=== PATIENT | male | born 1985 | race Caucasian/White ===

== ENCOUNTER 2018-05-11 09:45 | Emergency (ER) | payer OTHER ==
--- NOTE | 2018-05-12 10:37 | ER ---
DATE SEEN: 05/11/2018 TIME SEEN: The patient was seen at 1015 hours. 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 He has been coughing intermittently with mild shortness of breath that is extensive. MEDICAL HISTORY: Negative for allergies, medications, other diabetes, other serious illnesses, or hospitalizations. PHYSICAL EXAMINATION: VITAL SIGNS: Blood pressure of 125/66, heart rate 67, respirations 14, oxygen saturation 100%, and temperature 36.9 degrees centigrade. GENERAL: This pleasant, asthenic young man has marked turbinate swelling. No conjunctival injection. No shortness of breath. No tachypnea. HEENT: TMs negative. Pharynx without abnormality, erythema, swelling, or compromised pharyngeal air exchange. LUNGS: Clear without rales, rhonchi, or wheezes. HEART: S1 and S2. No murmur. ABDOMEN: Soft. No guarding. No abdominal discomfort. EXTREMITIES: Without abnormality. SKIN: No rash. ASSESSMENT: Ammonia exposure with associated cough and marked nasal turbinate swelling. PLAN: Off work until May 15. Follow up with doctor as needed. No medication was given to the patient. DIAGNOSIS: Ammonia exposure with lung irritation and nasal rhinitis secondary to chemical irritation. /[id number] YEMI/MATTHEW
== END 2018-05-11 10:45 | disposition home or self-care (01) ==
LOC: FB.ED 09:45
DX: T59.811A Toxic effect of smoke, accidental (unintentional), initial encounter (principal); R05 Cough; J70.5 Respiratory conditions due to smoke inhalation; Y99.0 Civilian activity done for income or pay
CPT/HCPCS: 99283